=== PATIENT | male | born 1955 | race Caucasian/White ===

== ENCOUNTER 2020-08-10 09:18 | Outpatient (CLI) | payer BC, SELFPAY ==
--- NOTE | 2020-08-10 09:23 | EST_ITS ---
Patient Info Name: Jesse Bishop Age: 65 years : 1955 Gender: Male Ht: 72 in Wt: 183 lbs BSA: 2.06 m2 HR: 82 bpm BP: 172 / 85 mmHg Exam Date: 08/10/2020 9:40 AM Exam Location: [facility] [facility] Patient Status: Outpatient Admit Date: 08/10/2020 Staff Ordering Physician: Mark Jay DO Stations Superintendent: Kaila Dang RDCS Attending Provider: MARK JAY DO Referring Physician: Michael SILVA; Exercise Technologist: Bernarda Carlin RDCS Exercise Physician: Mark Jay DO Exam Type: CA stress echo Study Info Indications - chest pain Treadmill exercise stress echocardiogram is performed. Summary 1. 1. Negative Guillaume exercise stress test for ischemic ST changes by ECG criteria. 2. 2. Reduced functional capacity, achieving 8.9 METs of workload. 3. 3. Baseline hypertension. 4. 4. Appropriate HR response to exercise. 5. 5. Appropriate HR recovery at 1 minute post exercise. 6. 6. Negative stress echocardiogram for ischemia by wall motion analysis. 7. 7. Patient informed of the above results. Stress Echo Findings Left Ventricle Appropriate increase in LV endocardial thickening with systole. Appropriate augmentation of contractility with systole. No wall motion abnormality. Left Ventricle Normal LV systolic function, no wall motion abnormality. Protocol: Guillaume Stress ECG Details Stage: REST Duration (min): 8 min : 25 sec Speed (mph): 0.0 Grade (%): 0 HR (bpm): 81 SBP (mmHg): 172 DBP (mmHg): 85 METS: --- Stage: REST Duration (min): 25 min : 39 sec Speed (mph): 0.0 Grade (%): 0 HR (bpm): 83 SBP (mmHg): 172 DBP (mmHg): 85 METS: --- Stage: STAGE 1 Duration (min): 1 min : 0 sec Speed (mph): 1.7 Grade (%): 10 HR (bpm): 100 SBP (mmHg): 172 DBP (mmHg): 85 METS: --- Stage: STAGE 1 Duration (min): 2 min : 0 sec Speed (mph): 1.7 Grade (%): 10 HR (bpm): 110 SBP (mmHg): 172 DBP (mmHg): 85 METS: --- Stage: STAGE 1 Duration (min): 3 min : 0 sec Speed (mph): 1.7 Grade (%): 10 HR (bpm): 120 SBP (mmHg): 189 DBP (mmHg): 84 METS: --- Stage: STAGE 2 Duration (min): 1 min : 0 sec Speed (mph): 2.5 Grade (%): 12 HR (bpm): 126 SBP (mmHg): 189 DBP (mmHg): 84 METS: --- Stage: STAGE 2 Duration (min): 2 min : 0 sec Speed (mph): 2.5 Grade (%): 12 HR (bpm): 130 SBP (mmHg): 187 DBP (mmHg): 94 METS: --- Stage: STAGE 2 Duration (min): 3 min : 0 sec Speed (mph): 2.5 Grade (%): 12 HR (bpm): 136 SBP (mmHg): 187 DBP (mmHg): 94 METS: --- Stage: STAGE 3 Duration (min): 1 min : 0 sec Speed (mph): 3.4 Grade (%): 14 HR (bpm): 138 SBP (mmHg): 176 DBP (mmHg): 89 METS: --- Stage: STAGE 3 Duration (min): 1 min : 1 sec Speed (mph): 0.0 Grade (%): 0 HR (bpm): 140 SBP (mmHg): 176 DBP (mmHg): 89 METS: --- Stage: RECOVERY Duration (min): 0
== END 2020-08-10 09:19 | disposition home or self-care (01) ==
PROVIDERS: PCP Family Medicine; Visit Provider Internal Medicine Cardiovascular Disease
DX: R07.9 Chest pain, unspecified (principal); I10 Essential (primary) hypertension
CPT/HCPCS: 93351

== ENCOUNTER 2020-10-05 13:46 | Outpatient (RCR) | payer BC, SELFPAY | END 2020-12-01 13:42 | disposition home or self-care (01) | LOC: ANHDMC 13:46 | PROVIDERS: PCP Family Medicine; Visit Provider Physician Assistant | DX: E10.65 Type 1 diabetes mellitus with hyperglycemia (principal); Z71.89 Other specified counseling | CPT/HCPCS: G0108 ==

== ENCOUNTER 2021-01-02 13:47 | Outpatient (RCR) | payer BC, SELFPAY ==
[2021-01-02 14:08] VITALS: BMI 25.4
[2021-01-02 14:14] VITALS: BMI 25.4
== END 2021-03-19 15:18 | disposition home or self-care (01) ==
LOC: ANHDMC 13:47
PROVIDERS: PCP Family Medicine; Visit Provider Physician Assistant
DX: E10.65 Type 1 diabetes mellitus with hyperglycemia (principal); Z71.3 Dietary counseling and surveillance
CPT/HCPCS: 97802

== ENCOUNTER 2021-05-31 07:51 | Outpatient (CLI) | payer BC, SELFPAY ==
--- NOTE | ~2021-05-31 | US_ITS ---
EXAMINATION: US aorta [facility] DATE: 05/31/2021 09:11 INDICATION: Abdominal aortic aneurysm screening with risk factors of hypertension, diabetes, hypercho lesterolemia and prior smoking TECHNIQUE: Grayscale, color Doppler, and pulsed Doppler images of the aorta and common iliac arteries were obtained. COMPARISON: CT dated 06/07/2019 FINDINGS: The proximal aorta measures 3.2 cm. The mid aorta measures 2.3 cm. The distal aorta measures 2.1 cm. The right common iliac artery measures 1.1 cm. The left common iliac artery measures 1.3 cm. IMPRESSION: 1. Normal caliber abdominal aorta. Reviewed, dictated and finalized at location A.
== END 2021-05-31 07:52 | disposition home or self-care (01) ==
PROVIDERS: PCP Family Medicine; Visit Provider Family Medicine
DX: Z13.6 Encounter for screening for cardiovascular disorders (principal)
CPT/HCPCS: 76706

== ENCOUNTER → 2021-05-31 09:08 | Outpatient (CLI) | payer BC, SELFPAY ==
--- NOTE | ~2021-05-31 | XR_ITS ---
EXAMINATION: XR shoulder LT min 2V INDICATION: Left shoulder pain TECHNIQUE: Four views of the left shoulder are submitted. COMPARISON: None FINDINGS: Normal alignment. No fracture. There is mild osteoarthritis of the glenohumeral and acromio clavicular joints. Thoracic dextroscoliosis is noted. Soft tissues are unremarkable. IMPRESSION: 1. Mild osteoarthritis. Reviewed, dictated and finalized at location A. IMPRESSION: 1. Mild osteoarthritis.
--- NOTE | ~2021-05-31 | XR_ITS ---
EXAMINATION: XR hip RT min 2V DATE: 05/31/2021 09:40 INDICATION: Right hip pain TECHNIQUE: Two views of right hip were obtained. COMPARISON: None. FINDINGS: Bone alignment is normal. There is no fracture. There is moderate osteoarthritis of the hip . The soft tissues are unremarkable. There is severe lower lumbar spondylosis. IMPRESSION: 1. Moderate hip osteoarthritis. Reviewed, dictated and finalized at location A.
== END ==
PROVIDERS: PCP Family Medicine; Visit Provider Family Medicine
DX: M16.11 Unilateral primary osteoarthritis, right hip (principal); M19.012 Primary osteoarthritis, left shoulder
CPT/HCPCS: 73030; 73502

== ENCOUNTER 2021-06-13 14:26 | Outpatient (CLI) | payer BC, SELFPAY ==
--- NOTE | 2021-06-18 17:41 | WPDPFTINT ---
PFT Procedure Performed PFT Procedure Performed Spirometry with Pre/Post Bronchodilator Plethysmography (Lung Vol) Diffusing Cap (DLCO) Flow Vol Loop PFT Interpretation DOS: 06/13/2021 REQUESTING: ETELVINA Clarke REASON FOR TESTING: COPD PULMONARY FUNCTION TESTS Results are reproducible and reliable, Repeatability of spirometry FEV1 maneuver post bronchodilator is Grade A. Spirometry: FEV1 104% predicted, 3.69 L normal. FVC is 109% predicted. The FEV1/ FVC ratio is 72% normal. There is a non statistically significant change after bronchodilator administration. Lung volumes: total lung capacity is 107%, normal. Residual volume is 112%, normal. RV/TLC is 35% normal. Airway resistance is normal, 123%. Diffusion: DLCO Is 74% mildly decreased. This corrects to 86% for alveolar volume. Flow volume loop: Mild scooping of the expiratory limb. IMPRESSION: Normal spirometry, normal lung volumes, minimal diffusion impairment that corrects for alveolar volume, and normal airway resistance. Lack of response to bronchodilators should not preclude use if clinically indicated. Kristina No MD
== END 2021-06-13 14:27 | disposition home or self-care (01) ==
PROVIDERS: PCP Family Medicine; Visit Provider Family Medicine
DX: R05 Cough (principal); Z87.891 Personal history of nicotine dependence
CPT/HCPCS: 94060; 94726; 94729

== ENCOUNTER 2021-08-03 11:11 | Outpatient (CLI) | payer BC, SELFPAY ==
--- NOTE | ~2021-08-03 | NM_ITS ---
EXAMINATION: NM bone scan whole body DATE: 08/03/2021 13:52 INDICATION: Multifocal abnormality of bone TECHNIQUE: 23.6 mCi Tc-99m HDP was administered intravenously. Delayed whole-body scintigrams were o btained. COMPARISON: Left shoulder and right hip radiographs dated 05/31/[address] abdomen and pelvis dated FINDINGS: Thoracolumbar dextroscoliosis. Mild likely degenerative joint centered uptake at the bilateral acromi oclavicular joints and at the elbows. Additional mild uptake likely related to osteoarthritis at righ t sided lower lumbar facet joints. No other suspicious bone lesions to suggest metastatic disease. IMPRESSION: 1. Typical pattern of mild likely degenerative uptake in the spine, pelvis and shoulders. No other sanderson spicious lesions to suggest acute osseous abnormality or metastatic disease. 2. Thoracolumbar dextroscoliosis. Reviewed, dictated and finalized at location A. IMPRESSION: 1. Typical pattern of mild likely degenerative uptake in the spine, pelvis and shoulders. No other suspicious lesions to suggest acute osseous abnormality or metastatic disease. 2. Thoracolumbar dextroscoliosis.
== END 2021-08-03 11:12 | disposition home or self-care (01) ==
LOC: ANHIMG 11:14
PROVIDERS: PCP Family Medicine; Visit Provider Urology
DX: M89.9 Disorder of bone, unspecified (principal)
CPT/HCPCS: 78306; A9561

== ENCOUNTER → 2021-09-13 08:50 | Outpatient (CLI) | payer BC, SELFPAY ==
--- NOTE | ~2021-09-13 | XR_ITS ---
EXAMINATION: XR chest 2V 09/13/2021 09:21 INDICATION: Acute cough PROCEDURE: 2 view chest COMPARISON: Comparison to multiple prior studies sequentially, with oldest reviewed study dated 02/16. FINDINGS: The lungs are clear. The cardiomediastinal silhouette is within normal limits. There are no pleural effusions. There is no pneumothorax suspected. IMPRESSION: 1: NO ACUTE CARDIOPULMONARY DISEASE. Reviewed, dictated and finalized at location A. EE SOMMELIER
== END ==
DX: R05.3 Chronic cough (principal)
CPT/HCPCS: 71046

== ENCOUNTER 2022-01-21 13:00 | Outpatient (RCR) | payer BC, SELFPAY | END 2022-03-13 07:18 | disposition home or self-care (01) | LOC: ANHDMC 13:00 | PROVIDERS: PCP Family Medicine; Visit Provider Nurse Practitioner Family | DX: E10.65 Type 1 diabetes mellitus with hyperglycemia (principal); Z71.89 Other specified counseling | CPT/HCPCS: G0108 ==

== ENCOUNTER 2022-10-14 10:50 | Outpatient (CLI) | payer BC, SELFPAY ==
[2022-10-14 12:25] LABS: Influenza A QL RT-PCR Negative (Negative); Influenza B QL RT-PCR Negative (Negative); SARS-CoV-2 RNA PCR Negative
== END 2022-10-14 10:51 | disposition home or self-care (01) ==
LOC: ANHLAB 10:52
PROVIDERS: PCP Family Medicine; Visit Provider Nurse Practitioner Family
DX: R05.9 Cough, unspecified (principal); Z20.822 Contact with and (suspected) exposure to COVID-19
CPT/HCPCS: 87502; U0003; U0005

== ENCOUNTER 2023-09-23 08:49 | Outpatient (CLI) | payer BC, SELFPAY ==
--- NOTE | 2023-09-23 08:50 | ECHO_ITS ---
Patient Info Name: Jesse Bishop Age: 68 years : 1955 Gender: Male Ht: 73 in Wt: 193 lbs BSA: 2.13 m2 HR: 82 bpm BP: 168 / 87 mmHg Heart Rhythm: Sinus Rhythm Technical Quality: Fair Exam Date: 09/23/2023 9:05 AM Exam Location: Echo Lab Patient Status: Outpatient Admit Date: 09/23/2023 Staff Ordering Physician: Christiano Rodriguez DO Market Risk Specialist: Ilene Knowles RDCS Attending Provider: Christiano Rodriguez DO Referring Physician: Michael SILVA; Exam Type: CA echo doppler color flow Study Info Indications R06.09 - Other forms of dyspnea Complete two-dimensional, color flow and Doppler transthoracic echocardiogram is performed. Summary 1. Complete two-dimensional, color flow and Doppler transthoracic echocardiogram is performed. 2. Left ventricular chamber dimension is normal. 3. Left ventricular systolic function is normal, estimated at 65-70%. 4. There is mild concentric increased left ventricular wall thickness. 5. The left ventricular diastolic function is grade I diastolic dysfunction. 6. E/e' 10 is mildly elevated. 7. There is mild mitral valve regurgitation. 8. There is trace tricuspid valve regurgitation. 9. No pulmonary hypertension, estimated pulmonary arterial systolic pressure is 35 mmHg. Left Ventricle E/e' 10 is mildly elevated. Left ventricular chamber dimension is normal. Left ventricular systolic function is normal, estimated at 65-70%. There is mild concentric increased left ventricular wall thickness. The left ventricular diastolic function is grade I diastolic dysfunction. Right Ventricle Right ventricular systolic function is normal and with normal TAPSE 2.2 cm. Right ventricular chamber dimension is normal. Left Atria Left atrial chamber dimension is normal. Right Atria Right atrial chamber dimension is normal. Aortic Valve The aortic valve is trileaflet. There is no aortic valve stenosis. There is no aortic valve regurgitation. Pulmonic Valve There is no pulmonic regurgitation. Mitral Valve There is no mitral valve stenosis. There is mild mitral valve regurgitation. Tricuspid Valve There is trace tricuspid valve regurgitation. No pulmonary hypertension, estimated pulmonary arterial systolic pressure is 35 mmHg. Pericardium/Pleural There is no pericardial effusion. Inferior Vena Cava Normal inferior vena cava with >50% collapse upon inspiration consistent with normal right atrial pressure, 5 mmHg. Aorta The aortic root size at the sinus of Valsalva is normal. Left Ventricular Outflow Tract Name Value Normal LVOT 2D LVOT Diameter 2.1 cm LVOT Doppler LVOT Peak Gradient 3 mmHg LVOT Mean Gradient 1 mmHg LVOT VTI 20 cm LVOT VTI/AV VTI Ratio 0.8 LVOT Stroke Volume 66 ml LVOT CO 4.9 l/min LVOT CI 2.3 l/min/m2 Pulmonic Valve Name Value Normal RVOT Doppler ----
--- NOTE | 2023-09-23 10:21 | IVDEFINITY ---
Prior to administration of IV Definity the patient was educated on the risks and benefits of the imaging enhancing agent including potential adverse side effects. The patient verbalized understanding. Allergies were verified. No exclusion criteria were identified and at least one of the following inclusion criteria were met: 1) physician request, 2) patient technically difficult to image (per the [place] [employer]chocardi[employer] guidelines of two or more segments not discernable within the apical view), or 3) questionable left ventricular function. ?
== END 2023-09-23 08:50 | disposition home or self-care (01) ==
LOC: ANHCARD 08:49
PROVIDERS: PCP Family Medicine; Visit Provider Internal Medicine Cardiovascular Disease
DX: R06.09 Other forms of dyspnea (principal)
CPT/HCPCS: 93306

== ENCOUNTER 2023-10-08 01:19 | Day surgery (SDC) | payer BC, SELFPAY ==
[2023-10-07 12:09] VITALS: BMI 26.1
[2023-10-08] VITALS (12 sets, daily range): BP systolic 110–147; BP diastolic 57–70; PULSE 84–92; RESP 14–18; TEMP 36.4; O2SAT 94–98; BMI 25.2
[2023-10-08 07:34] LABS: Basophils Absolute Auto 0.1 K/mm3 (0.0-0.1); Basophils Percent Auto 0.7 % (0.2-1.2); Eosinophils Absolute Auto 0.4 K/mm3 (0-0.3); Hemoglobin 10.8 g/dL (14.0-18.0); Immature Granulocyte Absolute 0.04 K/mm3 (0.00-0.031); Immature Granulocyte Percent A 0.4 % (0-0.5); Lymphocytes Absolute Auto 1.44 K/mm3 (0.9-3.2); Lymphocytes Percent Auto 14.9 % (18.3-44.2); Mean Corpuscular HGB Conc 32.7 g/dl (32-36); Mean Corpuscular Hemoglobin 29.9 pg (26-34); Mean Corpuscular Volume 91.4 fl (80-100); Mean Platelet Volume 9.6 fl (7.4-10.4); Monocytes Absolute Auto 0.9 K/mm3 (0.1-0.6); Monocytes Percent Auto 9.5 % (2.6-8.5); Neutrophils Absolute Auto 6.8 K/mm3 (1.3-6.7); Neutrophils Percent Auto 70.5 % (45.5-73.1); Platelet Count Result 291 k/mm3 (150-375); Red Blood Count 3.61 M/mm3 (4.6-6.20); Red Cell Distribution Width 12.7 % (11.5-14.5); White Blood Count 9.7 K/mm3 (4.5-10.0)
[2023-10-08 07:43] LABS: Anion Gap 13 mmol/L (8-16); Blood Urea Nitrogen 40 mg/dL (9-20); Calcium 9.1 mg/dL (8.4-10.2); Carbon Dioxide 22 mmol/L (22-30); Chloride 102 mmol/L (98-107); Estimated CRCL calculation 43 ml/min; Estimated Glomerular Filt Rate 43; Glucose 110 mg/dL (65-110); Potassium 4.1 mmol/L (3.4-5.0); Sodium 137 mmol/L (137-145)
--- NOTE | 2023-10-08 09:33 | WPDHPUPDATE1 ---
History and Physical Update Update Date/Time: 10/08/23 09:33 History and Physical has been reviewed, including an updated exam of the patient. There are NO changes in the patient's condition. Risks, benefits, and alternatives have been discussed and questions answered. Patient agrees to proceed with procedure.
--- NOTE | 2023-10-08 09:33 | WPDMODSED ---
Moderate Sedation Note-Pt Data Patient Data Diagnosis: Coronary artery disease Present Complaint: Coronary artery disease Procedure to be performed/Plan: Coronary angiography, left heart cath, +/- PCI Allergies Allergy/AdvReac Type Severity Reaction Status Date / Time No Known Allergies Allergy Unknown Verified 10/08/23 07:30 Home Medications Medication Instructions Recorded Confirmed Type aspirin 325 mg tablet 325 mg PO DAILY 10/14/19 10/08/23 History blood sugar diagnostic (Contour #10 ea 07/18/20 09/19/23 History Next Test Strips) subcutaneous insulin pump (t:slim #1 ea 07/18/20 09/19/23 History Insulin Delivery System) bupropion HCl 150 mg 24 hr tablet, 150 mg PO QAM #90 tabs 07/02/22 10/08/23 Rx extended release glucagon 3 mg/actuation nasal spray 3 mg intranasal ONCE #2 ea 09/19/22 10/07/23 Rx tamsulosin 0.4 mg capsule 0.4 mg PO DAILY 09/19/22 10/08/23 History Dexcom G6 Sensor (blood-glucose #9 ea 12/20/22 09/19/23 Rx sensor) esomeprazole magnesium 40 mg 40 mg PO DAILY #90 caps 03/18/23 10/08/23 Rx capsule,delayed release (Nexium) insulin lispro 100 unit/mL 60 - 80 unit (0.6 - 0.8 mL) 04/10/23 10/08/23 Rx subcutaneous solution (Humalog continuous subcutaneous infusion U-100 Insulin) DAILY #80 mL Dexcom G6 Transmitter #1 ea 06/18/23 09/19/23 Rx (blood-glucose transmitter) sertraline 100 mg tablet (Zoloft) 100 mg PO DAILY #90 tabs 06/18/23 10/08/23 Rx chlorthalidone 25 mg tablet 25 mg PO DAILY #90 tabs 09/16/23 10/08/23 Rx atorvastatin 10 mg tablet 10 mg PO DAILY #90 tabs 09/19/23 10/08/23 Rx amlodipine 10 mg tablet 10 mg PO DAILY 10/07/23 10/08/23 History coQ10 (ubiquinol) 100 mg capsule 100 mg PO DAILY 10/07/23 10/08/23 History (Qunol Yao CoQ10) fluticasone propionate 50 2 spray intranasal DAILY 12/05/23 12/05/23 History mcg/actuation nasal spray,suspension (Flonase Allergy Relief) levothyroxine 125 mcg tablet 125 mcg PO DAILY 10/07/23 10/08/23 History lisinopril 10 mg tablet 10 mg PO DAILY 10/07/23 10/08/23 History Current Medications: Active Medications Sodium Chloride (Normal Saline Iv) 500 mls @ 100 mls/hr IV CONT .Q5H DIANA Sodium Chloride (Normal Saline Iv) 1,000 mls @ 125 mls/hr IV CONT .Q8H ONE Stop: 10/08/23 17:30 Sedation/Anesthesia: No previous sedation/anesthesia problems (including family history). [facility] Past Medical History Medical History Anemia, unspecified Anxiety Chronic kidney disease, stage 3 unspecified Depression Diabetic peripheral neuropathy Diabetic retinopathy Elevated PSA Erectile dysfunction LISE (generalized anxiety disorder) GERD (gastroesophageal reflux disease) Goiter History of DVT (deep vein thrombosis) HTN (hypertension) Hypothyroidism, unspecified alf (current) use of insulin Major depression, chronic Mixed hyperlipidemia MIGNON (obstructive sleep apnea) Scoliosis Seasonal allergies Type 1 diabetes mellitus with hyperglycemia, with long-term current use of insulin Surgical History Surgical History No pertinent past surgical history Family History Family History Mother Acute myocardial infarction Family history of coronary artery disease Family history of thyroid disease Depression Hypertension Family history of heart disease in male family member before age 55 Sibling Family history of malignant melanoma Father Family history of coronary artery disease Hypertension Asthma Family history of heart disease in male family member before age 55 Other Family history of cardiovascular disease Family history of early CAD Social History Social History Social History: Smoking packs per day: 1 Smoking cigarettes per day: 20.0 Years smoked: 6 Smoking pack-years: 6.00 Smoking
--- NOTE | 2023-10-08 09:34 | WPDCARDPROC ---
Cardiac Cath Procedure Note Date of procedure:: 10/08/23 Performing physician:: CATHETERIZATION LABORATORY REPORT Procedure Date: 10/08/2023 Seasonal Driver: Stephie Garcias M.D., [facility]? Referring Physician: Christiano Rodriguez M.D. ? Anesthesia: Versed and Fentanyl were ordered and given in my presence at 08:54, procedure ended at 09:28. Supervision of nurse monitored moderate sedation with Versed and Fentanyl was provided for 34 minutes. Total of Versed 2mg and Fentanyl 50mcg were administered by the Coal Bagger RN Lesia Lopez. Pre-op Diagnosis: Coronary artery disease Post-op Diagnosis: 1. Severe one vessel coronary artery disease involving the LAD. Immediately after the bifurcation of the second diagonal branch, the mid-distal LAD has severe extensive diffuse disease. The first diagonal branch is a small caliber vessel with significant obstructive 90-99% ostial disease. The second diagonal branch is a medium caliber vessel with a significant 80-90% stenosis in the mid-distal portion. 2. Left ventricular end-diastolic pressure of 16mmHg Procedure(s): 1. Moderate sedation 2. Ultrasound-guided access of the right radial artery 3. Ultrasound-guided access of the right common femoral artery 4. Coronary angiography 5. Left heart cath 6. Angioseal closure of the right common femoral artery Access Site: Right radial artery, Right common femoral artery Brief History and Clinical Indications: Patient is a 68 year old male with insulin-dependent type 1 diabetes mellitus complicated by diabetic nephropathy / neuropathy / retinopathy, hypertension, hyperlipidemia, history of DVT who is referred for [facility] for abnormal coronary CTA and dyspnea on exertion. All risks, benefits and alternatives to left heart catheterization with or without percutaneous coronary intervention was discussed at length with the patient. Risk of complications including but not limited to bleeding, infection, arrhythmia, stroke, worsening kidney function, blood loss, groin hematoma, limb loss, emergency coronary artery bypass grafting, and even were discussed with the patient and all questions were answered. The patient understood and wished to proceed. Time out called, patient name, date of , medical record number, allergies, procedure performed, identify Seasonal Driver, patient and staff member concurred with accurate data, procedure carried on. Findings: LEFT HEART CATHETERIZATION FINDINGS: 1. Left main: The left main coronary artery is widely patent without any significant obstructive disease. 2. Left anterior descending: Heavy diffuse calcifications are seen throughout the proximal and mid LAD. The proximal LAD has mild diffuse disease. The first diagonal branch is a small caliber vessel with significant obstructive 90-99% ostial disease. The second diagonal branch is a medium caliber vessel with a significant 80-90% stenosis in the mid-distal portion. Immediately after the bifurcation of the second diagonal branch, the mid-distal LAD has severe extensive diffuse disease. 3. Left circumflex: The left circumflex has mild diffuse disease. The AV groove branch is diminutive. OM-1 and OM-2 have a high proximal origin off the LAD and they are of very small caliber and diffusely diseased. OM-3 is a very small caliber branch with diffuse disease. OM-4 is a small caliber branch with mild diffuse disease. OM-5 is a small caliber branch with mild diffuse disease with a moderate stenosis in the mid portion. 4. Right coronary artery: The RCA is the dominant vessel. The RCA has diffuse mild disease without any obstructive angiographic disease. 5. Left ventricle: A. End-diastolic pressure 16 mmHg. B. LV gram deferred. C. No significant gradient across aortic valve on catheter pullback. Description of Procedure: Informed consent signed and placed in the chart. Patient transferred to label operator room. Prepped and draped in usual sterile fashion. 2% lidocaine inje
== END 2023-10-08 13:30 | disposition home or self-care (01) ==
PROVIDERS: PCP Family Medicine; Visit Provider Internal Medicine
PROC: 4A023N7 Measurement of Cardiac Sampling and Pressure, Left Heart, Percutaneous Approach (ICD-10-PCS; CPT 93452; principal; 2023-10-08 08:30)
PROC: (CPT 36140; 2023-10-08 08:30)
DX: I25.10 Atherosclerotic heart disease of native coronary artery without angina pectoris (principal); R93.1 Abnormal findings on diagnostic imaging of heart and coronary circulation; E10.21 Type 1 diabetes mellitus with diabetic nephropathy; E10.319 Type 1 diabetes mellitus with unspecified diabetic retinopathy without macular edema; E78.5 Hyperlipidemia, unspecified; I12.9 Hypertensive chronic kidney disease with stage 1 through stage 4 chronic kidney disease, or unspecified chronic kidney disease; E10.22 Type 1 diabetes mellitus with diabetic chronic kidney disease; N18.30 Chronic kidney disease, stage 3 unspecified; E10.42 Type 1 diabetes mellitus with diabetic polyneuropathy; F41.1 Generalized anxiety disorder; K21.9 Gastro-esophageal reflux disease without esophagitis; E78.2 Mixed hyperlipidemia; G47.33 Obstructive sleep apnea (adult) (pediatric); D64.9 Anemia, unspecified; E03.9 Hypothyroidism, unspecified; F32.9 Major depressive disorder, single episode, unspecified; Z79.4 Long term (current) use of insulin; Z86.718 Personal history of other venous thrombosis and embolism; Z79.82 Long term (current) use of aspirin; Z96.41 Presence of insulin pump (external) (internal); Z87.891 Personal history of nicotine dependence
CPT/HCPCS: 36140; 36415; 80048; 85025; 93458; A9270; C1760; C1769; C1887; C1894; G0269; J1644; J2250; J2305; J3010; J7040

== ENCOUNTER 2023-11-06 11:02 | Outpatient (NON) | payer BC, SELFPAY ==
[2023-11-06 11:17] LABS: Basophils Absolute Auto 0.1 K/mm3 (0.0-0.1); Basophils Percent Auto 0.7 % (0.2-1.2); Eosinophils Absolute Auto 0.3 K/mm3 (0-0.3); Hematocrit 26.6 % (42.0-52.0); Hemoglobin 8.2 g/dL (14.0-18.0); Immature Granulocyte Absolute 0.08 K/mm3 (0.00-0.031); Immature Granulocyte Percent A 0.8 % (0-0.5); Lymphocytes Absolute Auto 0.99 K/mm3 (0.9-3.2); Lymphocytes Percent Auto 9.7 % (18.3-44.2); Mean Corpuscular HGB Conc 30.8 g/dl (32-36); Mean Corpuscular Volume 97.4 fl (80-100); Mean Platelet Volume 10.1 fl (7.4-10.4); Monocytes Absolute Auto 0.6 K/mm3 (0.1-0.6); Monocytes Percent Auto 6.3 % (2.6-8.5); Neutrophils Absolute Auto 8.1 K/mm3 (1.3-6.7); Neutrophils Percent Auto 79.5 % (45.5-73.1); Platelet Count Result 392 k/mm3 (150-375); Red Blood Count 2.73 M/mm3 (4.6-6.20); Red Cell Distribution Width 14.2 % (11.5-14.5); White Blood Count 10.2 K/mm3 (4.5-10.0)
[2023-11-06 11:37] LABS: Anion Gap 10 mmol/L (8-16); Blood Urea Nitrogen 57 mg/dL (9-20); Calcium 8.3 mg/dL (8.4-10.2); Carbon Dioxide 22 mmol/L (22-30); Chloride 104 mmol/L (98-107); Estimated Glomerular Filt Rate 38; Glucose 105 mg/dL (65-110); Potassium 4.5 mmol/L (3.4-5.0); Sodium 136 mmol/L (137-145)
== END 2023-11-06 11:03 | disposition home or self-care (01) ==
LOC: HOME HLTH 11:04
PROVIDERS: PCP Family Medicine; Visit Provider Surgery
DX: Z48.812 Encounter for surgical aftercare following surgery on the circulatory system (principal)
CPT/HCPCS: 80048; 85025

== ENCOUNTER 2024-03-22 07:40 | Emergency (ER) | payer BC, SELFPAY ==
--- NOTE | ~2024-03-22 | CT_ITS ---
EXAMINATION: CT abdomen pelvis wo con DATE: 03/22/2024 08:44 INDICATION: Right lower quadrant abdominal pain, dysuria, fever TECHNIQUE: Computed tomography (CT) of the abdomen and pelvis was performed without intravenous contr ast. Automated exposure control and iterative reconstruction technique were employed. Exam dose: 532 .42 mGy-cm total exam DLP. COMPARISON: 06/07/2019 CT abdomen pelvis FINDINGS: Status post sternotomy. Minimal dependent lower lobe atelectasis. The lung bases are clear of infiltrate or consolidation. Normal heart size. No pericardial or pleural effusion. The liver, spleen, pancreas, and adrenal glands are unremarkable on this limited noncontrast examinat ion. The gallbladder is distended. No gallbladder wall thickening or pericholecystic fluid or fat str anding. No bile duct or pancreatic duct dilatation. No right renal mass lesion or urinary tract calculus or hydroureteronephrosis. Pinpoint nonobstructing upper pole left renal calculus and approximately 1.7 x 4 mm nonobstructing lo wer pole left renal calculus. 1.5 cm exophytic hyperdense lesion at the inferior tip of the left kidney with attenuation of 70 Houn sfield units approximately, not significantly changed since 06/07/2019, consistent with hyperdense cyst . No left ureteral calculus or hydroureteronephrosis. Prostate enlargement. There is diffuse thickening of the urinary bladder wall consistent with bladder outlet obstruction secondary to prostatomegaly. Small sliding hiatal hernia. No bowel obstruction or intraperitoneal free air is detected. No evidence of appendicitis is detected . There is a prominent amount of fecal material within the colon. Small fat-containing umbilical hernia. There is atherosclerotic calcification of the abdominal aorta but no aneurysm. No intraperitoneal or retroperitoneal or pelvic mass lesion or adenopathy or ascites. Degenerative change of the lower thoracic spine. Thoracolumbar dextroscoliosis. Multilevel degenerati ve disc disease of the lumbar spine, moderately severe at L3-4, severe at L4-5 and L5-S1. No suspicio us osteolytic or osteoblastic lesions are noted. IMPRESSION: No evidence of appendicitis is noted No bowel obstruction or free air Small sliding hiatal hernia Mild nonobstructive left nephrolithiasis 1.5 cm hyperdense exophytic lower pole left renal cyst Prostatomegaly with bladder wall thickening Reviewed, dictated and finalized at [facility]. Reviewed, dictated and finalized at [facility].
[2024-03-22 07:51] VITALS: BP 154/70; PULSE 81; RESP 16; TEMP 38; O2SAT 96
[2024-03-22 08:25] LABS: Basophils Percent Auto 0.2 % (0.2-1.2); Hematocrit 30.3 % (42.0-52.0); Hemoglobin 10.1 g/dL (14.0-18.0); Immature Granulocyte Absolute 0.26 K/mm3 (0.00-0.031); Immature Granulocyte Percent A 1.2 % (0-0.5); Lymphocytes Absolute Auto 0.58 K/mm3 (0.9-3.2); Lymphocytes Percent Auto 2.7 % (18.3-44.2); Mean Corpuscular HGB Conc 33.3 g/dl (32-36); Mean Corpuscular Volume 89.9 fl (80-100); Mean Platelet Volume 10.7 fl (7.4-10.4); Monocytes Absolute Auto 2.5 K/mm3 (0.1-0.6); Monocytes Percent Auto 11.5 % (2.6-8.5); Neutrophils Absolute Auto 18.1 K/mm3 (1.3-6.7); Neutrophils Percent Auto 84.4 % (45.5-73.1); Platelet Count Result 175 k/mm3 (150-375); Red Blood Count 3.37 M/mm3 (4.6-6.20); Red Cell Distribution Width 13.9 % (11.5-14.5); White Blood Count 21.4 K/mm3 (4.5-10.0)
[2024-03-22 08:32] LABS: Appearance Urine Cloudy (Clear); Bacteria Urine 4+ /hpf; Bilirubin Urine Negative (Negative); Blood Urine 3+ (Negative); Color Urine Yellow (Yellow); Glucose Urine UA Negative (Negative); Ketones Urine Trace mg/dL (Negative); Leukocyte Esterase Ur 3+ LEU/UL (Negative); Nitrate Urine Negative (Negative); Protein Urine 2+ mg/dL (Negative); Squamous Epithelial Cell Urine None Seen /hpf (Few); WBC Urine >100 /hpf (0-3); pH Urine 5.5 (5.0-9.0)
[2024-03-22 08:33] LABS: Add Urine Microscopic? YES
[2024-03-22 08:35] LABS: Alanine Aminotransferase 25 U/L (6-50); Albumin Level 4.2 g/dL (3.5-5.1); Alkaline Phosphatase 87 U/L (38-126); Anion Gap 10 mmol/L (4-12); Aspartate Amino Transferase 21 U/L (17-59); Bilirubin,Total 0.8 mg/dL (0.2-1.3); Blood Urea Nitrogen 33 mg/dL (9-20); Calcium 8.8 mg/dL (8.4-10.2); Carbon Dioxide 20 mmol/L (22-30); Chloride 105 mmol/L (98-107); Estimated CRCL calculation 46 ml/min; Estimated Glomerular Filt Rate 46; Glucose 129 mg/dL (65-110); Potassium 3.9 mmol/L (3.4-5.0); Sodium 135 mmol/L (137-145)
[2024-03-22] MEDS: ACETAMINOPHEN 500 MG TABLET 1000 MG PO (08:49)
[2024-03-22 09:23] VITALS: BP 138/61; PULSE 77; RESP 16; O2SAT 96
[2024-03-22 09:56] VITALS: BP 115/61; PULSE 80; RESP 16; O2SAT 97
--- NOTE | 2024-03-22 15:45 | ED.MALEGU ---
HPI - Male Genitourinary General Chief complaint: Urogenital-Male Stated complaint: uti symptoms Time Seen by Provider: 03/22/24 08:19 History of Present Illness HPI Narrative: Patient presenting here with pain with urination, and generalized body aches. Also some discomfort to the right lower abdomen. Has had history of kidney stones in the past. Related Data Home Medications Medication Instructions Recorded Confirmed aspirin 325 mg tablet 325 mg PO DAILY 10/14/19 11/25/23 blood sugar diagnostic (Contour #10 ea 07/18/20 11/25/23 Next Test Strips) subcutaneous insulin pump (t:slim #1 ea 07/18/20 11/25/23 Insulin Delivery System) tamsulosin 0.4 mg capsule 0.4 mg PO DAILY 09/19/22 11/25/23 coQ10 (ubiquinol) 100 mg capsule 100 mg PO DAILY 10/07/23 11/25/23 (Qunol Yao CoQ10) fluticasone propionate 50 2 spray intranasal DAILY 10/07/23 11/25/23 mcg/actuation nasal spray,suspension (Flonase Allergy Relief) levothyroxine 125 mcg tablet 125 mcg PO DAILY 10/07/23 11/25/23 Allergies Allergy/AdvReac Type Severity Reaction Status Date / Time No Known Allergies Allergy Unknown Verified 03/22/24 07:40 Review of Systems Review of Systems: All systems reviewed & are unremarkable except as noted in HPI and below PMFSH Past Medical History Medical History (Updated 03/22/24 @ 09:38 by Melyssa Rodriguez MD) Anemia, unspecified Anxiety Chronic kidney disease, stage 3 unspecified Depression Diabetic peripheral neuropathy Diabetic retinopathy Elevated PSA Erectile dysfunction LISE (generalized anxiety disorder) GERD (gastroesophageal reflux disease) Goiter History of DVT (deep vein thrombosis) HTN (hypertension) Hypothyroidism, unspecified detention (current) use of insulin Major depression, chronic Mixed hyperlipidemia MIGNON (obstructive sleep apnea) Scoliosis Seasonal allergies Type 1 diabetes mellitus with hyperglycemia, with long-term current use of insulin Surgical History Surgical History (Updated 12/19/23 @ 18:54 by Shiva Bergeron PA-C) History of coronary artery bypass graft x 3 10/23/23 S/P thoracentesis right s/p CABG 10/2023 Family History Family History Mother Acute myocardial infarction Family history of coronary artery disease Family history of thyroid disease Depression Hypertension Family history of heart disease in male family member before age 55 Sibling Family history of malignant melanoma Father Family history of coronary artery disease Hypertension Asthma Family history of heart disease in male family member before age 55 Other Family history of cardiovascular disease Family history of early CAD Social History Social History Social History: Smoking packs per day: 1 Smoking cigarettes per day: 20.0 Years smoked: 6 Smoking pack-years: 6.00 Smoking status: Former smoker Tobacco type: cigarettes Second hand tobacco smoke exposure: No Smoking end date: 11/03/83 Alcohol intake: never Substance use: never Substance use type: does not use Last use: 1975 Lack of Transportation: No Lack of Food: Never True Current Housing: I Have Housing Concerned About Future Housing: No Difficulty Paying Gas/Electric Bills: No Difficulty Paying for Meds: No Currently Unemployed: YES Education: Decline to Answer Difficulty w/ Childcare or Family Care: No Living arrangements: with family Occupation/Education: retired Gender identity (if verbalized by the patient): Male Sexual Orientation (if Verbalized by the Patient): Straight or Heterosexual Spiritual care concerns: No Exam Narrative: EXAMINATION OF ORGAN SYSTEMS/BODY AREAS: Constitutional: Vital signs per nursing GENERAL:[No acute distress, non-toxic appearing.] HEAD: Normal with no signs of head trauma. EYES: EOMI, conjunctiva normal ENT:
== END 2024-03-22 09:58 | disposition home or self-care (01) ==
PROVIDERS: Emergency Provider Emergency Medicine; PCP Family Medicine
DX: N39.0 Urinary tract infection, site not specified (principal); E10.22 Type 1 diabetes mellitus with diabetic chronic kidney disease; I12.9 Hypertensive chronic kidney disease with stage 1 through stage 4 chronic kidney disease, or unspecified chronic kidney disease; N18.30 Chronic kidney disease, stage 3 unspecified; E10.319 Type 1 diabetes mellitus with unspecified diabetic retinopathy without macular edema; E10.42 Type 1 diabetes mellitus with diabetic polyneuropathy; E03.9 Hypothyroidism, unspecified; E78.2 Mixed hyperlipidemia; D64.9 Anemia, unspecified; G47.33 Obstructive sleep apnea (adult) (pediatric); K21.9 Gastro-esophageal reflux disease without esophagitis; F32.A Depression, unspecified; F41.1 Generalized anxiety disorder; Z95.1 Presence of aortocoronary bypass graft; Z96.41 Presence of insulin pump (external) (internal); Z87.442 Personal history of urinary calculi; Z86.718 Personal history of other venous thrombosis and embolism; Z87.891 Personal history of nicotine dependence; Z79.4 Long term (current) use of insulin; Z79.82 Long term (current) use of aspirin; K44.9 Diaphragmatic hernia without obstruction or gangrene; N28.1 Cyst of kidney, acquired; N40.0 Benign prostatic hyperplasia without lower urinary tract symptoms; R93.41 Abnormal radiologic findings on diagnostic imaging of renal pelvis, ureter, or bladder
CPT/HCPCS: 36415; 74176; 80053; 81001; 85025; 87077; 87086; 87088; 87186; 96365; 99284; A9270; J0696

== ENCOUNTER 2024-07-31 19:17 | Emergency (ER) | payer MEDICARE, SELFPAY ==
[2024-07-31] VITALS (11 sets, daily range): BP systolic 151–221; BP diastolic 61–123; PULSE 54–73; RESP 11–19; TEMP 36.4; O2SAT 97–100
--- NOTE | ~2024-07-31 | CT_ITS ---
CT brain wo con Ordering provider: Magdy Ervin MD History: 69 years Male with . AMS . Comparison: February 16, 2019 Technique: CT of the head without contrast. Radiation reduction technique utilized. The dose-length product was 681 mGy-cm. FINDINGS: BRAIN PARENCHYMA AND CSF SPACES: No midline shift, mass effect or hemorrhage. The brain parenchyma a nd CSF spaces are otherwise normal. VISUALIZED PARANASAL SINUSES: Well aerated. MASTOIDS: Well aerated. BONES: The bones appear intact. SOFT TISSUES: Visualized nasopharynx is normal. Superficial soft tissues are normal. IMPRESSION: No acute intracranial findings. Reviewed, dictated and finalized at location [facility].
--- NOTE | 2024-07-31 19:30 | ECG_ITS ---
Test Date: 2024-07-31 20:04:53 Measurements Intervals [place] Rate: 68 P: 45 SC: 176 QRS: 9 QRSD: 113 T: 69 QT: 455 QTc: 486 Interpretive Statements SINUS RHYTHM WITH ATRIAL COUPLET INTRAVENTRICULAR CONDUCTION DELAY BASELINE ARTIFACT- I, II, III, AVR, AVL, AVF, V6 BORDERLINE ECG No previous ECG available for comparison Electronically Signed On 08-01-2024 09:04:08 CDT by Christiano Rodriguez D.O.
--- NOTE | 2024-07-31 19:30 | PC.NURSE ---
pt blood sugar is 131 at this time
[2024-07-31] MEDS: LACTATED RINGERS 1,000 ML 999 ML IV CONT (19:42)
[2024-07-31 19:43] LABS: Basophils Absolute Auto 0.1 K/mm3 (0.0-0.1); Basophils Percent Auto 0.5 % (0.2-1.2); Eosinophils Absolute Auto 0.3 K/mm3 (0-0.3); Eosinophils Percent Auto 2.8 % (0-4.4); Hematocrit 33.9 % (42.0-52.0); Hemoglobin 11.3 g/dL (14.0-18.0); Immature Granulocyte Absolute 0.04 K/mm3 (0.00-0.031); Immature Granulocyte Percent A 0.4 % (0-0.5); Lymphocytes Absolute Auto 1.38 K/mm3 (0.9-3.2); Lymphocytes Percent Auto 13.5 % (18.3-44.2); Mean Corpuscular HGB Conc 33.3 g/dl (32-36); Mean Corpuscular Hemoglobin 31.1 pg (26-34); Mean Corpuscular Volume 93.4 fl (80-100); Mean Platelet Volume 10.2 fl (7.4-10.4); Monocytes Absolute Auto 0.8 K/mm3 (0.1-0.6); Monocytes Percent Auto 8.2 % (2.6-8.5); Neutrophils Absolute Auto 7.6 K/mm3 (1.3-6.7); Neutrophils Percent Auto 74.6 % (45.5-73.1); Platelet Count Result 222 k/mm3 (150-375); Red Blood Count 3.63 M/mm3 (4.6-6.20); Red Cell Distribution Width 12.1 % (11.5-14.5); White Blood Count 10.2 K/mm3 (4.5-10.0)
[2024-07-31 19:47] LABS: Glucose Point of Care 131 mg/dl (65-105)
[2024-07-31 19:54] LABS: Alanine Aminotransferase 26 U/L (6-50); Albumin Level 4.6 g/dL (3.5-5.1); Alkaline Phosphatase 102 U/L (38-126); Anion Gap 10 mmol/L (4-12); Aspartate Amino Transferase 27 U/L (17-59); Bilirubin,Total 0.3 mg/dL (0.2-1.3); Blood Urea Nitrogen 36 mg/dL (9-20); Calcium 9.1 mg/dL (8.4-10.2); Carbon Dioxide 26 mmol/L (22-30); Chloride 102 mmol/L (98-107); Estimated CRCL calculation 41 ml/min; Estimated Glomerular Filt Rate 40; Ethanol < 10 mg/dL (<10); Glucose 179 mg/dL (65-110); Potassium 3.9 mmol/L (3.4-5.0); Sodium 138 mmol/L (137-145)
[2024-07-31 19:55] LABS: Prothrombin Time 13.5 Seconds (11.1-14.7)
[2024-07-31 19:56] LABS: Partial Thromboplastin Time 33.3 Seconds (22.3-36.8)
[2024-07-31 21:25] LABS: Glucose Point of Care 235 mg/dl (65-105)
[2024-07-31 21:44] LABS: Add Urine Microscopic? YES; Appearance Urine Clear (Clear); Bacteria Urine None Seen /hpf; Bilirubin Urine Negative (Negative); Blood Urine Negative (Negative); Color Urine Yellow (Yellow); Glucose Urine UA Negative (Negative); Ketones Urine Negative (Negative); Leukocyte Esterase Ur Negative LEU/UL (Negative); Nitrate Urine Negative (Negative); Non Pathogenic Casts 0-2; Protein Urine 1+ mg/dL (Negative); RBC Urine 0-2 /hpf (0-2); Squamous Epithelial Cell Urine None Seen /hpf (Few); Urobilinogen Urine 0.2 mg/dL (<2.0); WBC Urine 0-5 /hpf (0-3); pH Urine 6.5 (5.0-9.0)
--- NOTE | 2024-07-31 21:49 | ED.AMS ---
HPI - Altered Mental Status General Chief Complaint: Altered Mental Status Stated Complaint: low blood sugar Time Seen by Provider: 07/31/24 19:28 History of Present Illness HPI narrative: 69-year-old male with a past medical history significant for insulin-dependent diabetes, hypertension, hypothyroidism. Presents today via EMS for concerns of altered mental status. Patient was otherwise in his normal state of health, was going to be eating dinner today and grabbed a plate of food but his noticed that he was starting to slump over on the couch. EMS was called and found his blood sugar to be severely hypoglycemic at 36. He was given oral glucose and his insulin pump was discontinued. Patient then gave him D10 150 mL and sugar went up to 120 with return of mentation. Patient is present awake alert oriented states he feels otherwise in his normal state of health but has been complaining of feeling ?dizzy ?for the last few hours prior to this event. Does have a history of coronary bypass, hypertension and did not take any of his blood pressure medications today including losartan Coreg. Was previously in his normal state of health and has not been injury, had any recent illnesses or hospitalizations visits. Denies any trauma, collateral information states that he was not injured or had any kind of head trauma today. Related Data Home Medications Medication Instructions Recorded Confirmed blood sugar diagnostic (Contour #10 ea 07/18/20 07/20/24 Next Test Strips) subcutaneous insulin pump (t:slim #1 ea 07/18/20 07/20/24 Insulin Delivery System) tamsulosin 0.4 mg capsule 0.4 mg PO DAILY 09/19/22 07/20/24 fluticasone propionate 50 2 spray intranasal DAILY 10/07/23 07/20/24 mcg/actuation nasal spray,suspension (Flonase Allergy Relief) levothyroxine 125 mcg tablet 125 mcg PO DAILY 10/07/23 07/20/24 aspirin 81 mg chewable tablet 81 mg PO DAILY 07/20/24 07/20/24 carvedilol 25 mg tablet 25 mg PO Q12H 07/20/24 07/20/24 furosemide 40 mg tablet 40 mg PO QAM 07/20/24 07/20/24 losartan 50 mg tablet 50 mg PO DAILY 07/20/24 07/20/24 Allergies Allergy/AdvReac Type Severity Reaction Status Date / Time No Known Allergies Allergy Unknown Verified 07/20/24 13:54 Review of Systems Review of Systems: As [facility] Past Medical History Medical History Anemia, unspecified Anxiety Chronic kidney disease, stage 3 unspecified Depression Diabetic peripheral neuropathy Diabetic retinopathy Elevated PSA Erectile dysfunction LISE (generalized anxiety disorder) GERD (gastroesophageal reflux disease) Goiter History of DVT (deep vein thrombosis) HTN (hypertension) Hypothyroidism, unspecified dedicated intermodal truck driver (current) use of insulin Major depression, chronic Mixed hyperlipidemia MIGNON (obstructive sleep apnea) Scoliosis Seasonal allergies Type 1 diabetes mellitus with hyperglycemia, with long-term current use of insulin Surgical History Surgical History History of coronary artery bypass graft x 3 10/23/23 S/P thoracentesis right s/p CABG 10/2023 Family History Family History Mother Acute myocardial infarction Family history of coronary artery disease Family history of thyroid disease Depression Hypertension Family history of heart disease in male family member before age 55 Sibling Family history of malignant melanoma Father Family history of coronary artery disease Hypertension Asthma Family history of heart disease in male family member before age 55 Other Family history of cardiovascular disease Family history of early CAD Social History Social History Social History: Smoking packs per day: 1 Smoking cigarettes per day: 20.0
[2024-07-31] MEDS: carvediloL 25 MG TABLET PO (22:18)
--- NOTE | 2024-07-31 23:20 | PC.NURSE ---
pt blood sugar is 395 at this time
[2024-07-31 23:22] LABS: Glucose Point of Care 395 mg/dl (65-105)
[2024-07-31] MEDS: INSULIN ASPART (*BKC) 100 UNITS/ML 8 UNITS SUB-Q (23:55)
[2024-08-01 00:01] VITALS: BP 169/70; PULSE 81; RESP 14; TEMP 36.8; O2SAT 95
== END 2024-08-01 00:01 | disposition home or self-care (01) ==
PROVIDERS: Emergency Provider Student in an Organized Health Care Education/Training Program; PCP Family Medicine
DX: E10.649 Type 1 diabetes mellitus with hypoglycemia without coma (principal); E10.22 Type 1 diabetes mellitus with diabetic chronic kidney disease; I12.9 Hypertensive chronic kidney disease with stage 1 through stage 4 chronic kidney disease, or unspecified chronic kidney disease; N18.30 Chronic kidney disease, stage 3 unspecified; E10.42 Type 1 diabetes mellitus with diabetic polyneuropathy; E10.319 Type 1 diabetes mellitus with unspecified diabetic retinopathy without macular edema; D64.9 Anemia, unspecified; K21.9 Gastro-esophageal reflux disease without esophagitis; E78.2 Mixed hyperlipidemia; E03.9 Hypothyroidism, unspecified; F41.1 Generalized anxiety disorder; F32.9 Major depressive disorder, single episode, unspecified; Z96.41 Presence of insulin pump (external) (internal); Z95.1 Presence of aortocoronary bypass graft; Z86.718 Personal history of other venous thrombosis and embolism; Z87.891 Personal history of nicotine dependence; Z79.4 Long term (current) use of insulin; Z79.82 Long term (current) use of aspirin; Z79.899 Other long term (current) drug therapy; I45.9 Conduction disorder, unspecified
CPT/HCPCS: 36415; 70450; 80053; 80307; 81001; 82948; 85025; 85610; 85730; 93005; 96360; 99284; A9270; J1815; J7120